=== PATIENT | male | born 2005 | race Two or more races ===

== ENCOUNTER 2023-11-28 17:16 | Emergency (ER) | payer MEDICAID ==
[~2023-11-28] VITALS: Ht 170.2 cm; Wt 68.2 kg
[2023-11-28] MEDS ORDERED: AUG875T PO (18:51)
[2023-11-28] MEDS ORDERED: MUPI2OIN2 EX (18:51)
[2023-11-28] MEDS ORDERED: IBUP1TAB5 PO (18:51)
[2023-11-28] MEDS: AMOXICILLIN/CLAVUL 875 MG TAB PO ONE (18:56)
[2023-11-28] MEDS: NEOMYCIN-BACITRACIN-POLYM UNITDOSE PKG TOP OINT TOP ONE (18:56)
[2023-11-28] MEDS: HYDROcodone-ACET 5/325MG TAB PO ONE (18:58)
[2023-11-28 20:15] VITALS: PULSE 66; RESP 16; O2SAT 98
[2023-11-28 20:16] VITALS: BP 115/64; PULSE 70; RESP 18; TEMP 98.2; O2SAT 98
== END 2023-11-28 20:24 | disposition home or self-care (01) ==
LOC: ER 17:16
DX: S50.02XA Contusion of left elbow, initial encounter (principal); S51.032A Puncture wound without foreign body of left elbow, initial encounter; S61.431A Puncture wound without foreign body of right hand, initial encounter; S51.052A Open bite, left elbow, initial encounter; W54.0XXA Bitten by dog, initial encounter; Y93.89 Activity, other specified; Y92.89 Other specified places as the place of occurrence of the external cause; Y99.8 Other external cause status
CPT/HCPCS: 73080